=== PATIENT | female | born 1965 | race Caucasian/White ===

== ENCOUNTER → 2021-11-28 | Outpatient (CLI) | payer OTHER ==
--- NOTE | 2021-11-28 17:16 | Diagnostic Imaging Report ---
INDICATION: Knee pain. TIME OF EXAM: 01:49 p.m. FINDINGS: Three views of the left knee demonstrate postop changes of total knee arthroplasty. Prosthetic elements are in good position. No fracture or loosening is seen. IMPRESSION: Postop changes of the left knee. No acute abnormality is detected. Dictated by: Dictated on workstation # [id number]
== END ==
LOC: ORTHO 13:25
PROVIDERS: ATTEND Orthopaedic Surgery
DX: M25.562 Pain in left knee (principal)
CPT/HCPCS: 73562; G0463; 99213